=== PATIENT | male | born 1940 | race Caucasian/White ===

== ENCOUNTER 2018-11-14 17:33 | Emergency (ER) | payer MEDICARE ==
[~2018-11-14] VITALS: Ht 180.3 cm; Wt 61.4 kg
[~2018-11-14 17:33] MED LIST: ALEVE220 MG PO; AMOX/K CLAV500 MG PO; FLONASE NASAL50 MCG; LORTAB 5/3255 MG PO; NORCO1 TA1 PO; PENICILLN VK500 MG PO; PERCOCET 5/325M1 TAB PO; VIAGRA50 MG PO
[2018-11-14 19:45] LABS: HEMATOCRIT 25.6 % (39.0-50.0); HEMOGLOBIN 8.4 g/dl (14.0-18.0); MEAN CELL VOLUME 91.1 fL CALC (80.0-100.0); MEAN CORPUSCULAR HGB 29.9 pG CALC (26.0-32.0); MEAN CORPUSCULAR HGB CONC 32.8 g/L CALC (32.0-36.0); PLATELET COUNT 184 thou/uL (130-400); RED BLOOD COUNT 2.81 mill/uL (4.70-6.10); RED CELL DISTRI WIDTH 13.3 % (11.5-15.5)
[2018-11-14 19:46] LABS: MANUAL DIFFERENTIAL YES
[2018-11-14 19:49] LABS: ALBUMIN 3.1 g/dL (3.2-5.0); ALKALINE PHOSPHATASE 70 u/l (38-126); BILIRUBIN, TOTAL 1.1 mg/dL (0.0-1.4); BUN 18 mg/dL (8-23); BUN/CREATININE RATIO 25 (12-20 (CALC)); CARBON DIOXIDE 22 mmol/l (22-30); CHLORIDE 98 mmol/l (95-108); CREATININE 0.7 mg/dL (0.7-1.3); GFR > 60 ML/MIN (>=60 (CALC)); GFR FOR AFR.AMER. > 60 ML/MIN (>=60 (CALC)); POTASSIUM 4.6 mmol/l (3.5-5.1); TOTAL PROTEIN 6.4 g/dL (6.3-8.2)
[2018-11-14 19:59] LABS: ANION GAP 16 (6-22 (CALC)); SGOT/AST 43 u/l (19-48); SODIUM 131 mmol/l (137-146)
[2018-11-14 20:07] LABS: BAND 4 % (0-8)
[2018-11-14 20:12] LABS: URINE BLOOD DIPSTICK NEGATIVE (NEGATIVE); URINE COLOR YELLOW; URINE GLUCOSE - DIPSTICK NEGATIVE (NEGATIVE); URINE KETONE TRACE mg/dL (NEGATIVE); URINE LEUK ESTERASE NEGATIVE (NEGATIVE); URINE NITRITE - DIPSTICK NEGATIVE (Negative); URINE PROTEIN - DIPSTICK TRACE mg/dL (NEG-TRACE); URINE UROBILINOGEN - DIPSTICK >=8.0 E.U./dL (0.2)
--- NOTE | 2018-11-14 20:13 | NUR ---
BREATHINGTREATMENT GIVEN. BREATHING TECH. FOR GOOD DEPOSITION TO THE LUNGS.
[2018-11-14 20:27] LABS: URINE BILIRUBIN - DIPSTICK SMALL (NEGATIVE)
[2018-11-14] MEDS ORDERED: VENTOLIN HFA IN (21:17)
[2018-11-14] MEDS ORDERED: LEVAQUIN750 MG PO (21:17)
[2018-11-14] MEDS ORDERED: PREDNISONE10 MG PO (21:17)
[2018-11-14 21:27] VITALS: BP 108/66
== END 2018-11-14 21:30 | disposition home or self-care (01) ==
LOC: ED 17:33
PROVIDERS: Family Medicine
DX: J18.9 Pneumonia, unspecified organism (principal); C34.90 Malignant neoplasm of unspecified part of unspecified bronchus or lung; R11.10 Vomiting, unspecified; F17.210 Nicotine dependence, cigarettes, uncomplicated; Z79.899 Other long term (current) drug therapy

== ENCOUNTER 2018-11-19 17:10 | Emergency (ER) | payer MEDICARE ==
[~2018-11-19] VITALS: Ht 180.3 cm; Wt 59.0 kg
[~2018-11-19 17:10] MED LIST changes: +LEVAQUIN750 MG PO; +PREDNISONE10 MG PO; +VENTOLIN HFA IN
[2018-11-19 19:39] LABS: ALBUMIN 2.9 g/dL (3.2-5.0); ALKALINE PHOSPHATASE 73 u/l (38-126); BILIRUBIN, TOTAL 0.4 mg/dL (0.0-1.4); BUN 19 mg/dL (8-23); BUN/CREATININE RATIO 33 (12-20 (CALC)); CARBON DIOXIDE 25 mmol/l (22-30); CHLORIDE 103 mmol/l (95-108); CREATININE 0.6 mg/dL (0.7-1.3); GFR > 60 ML/MIN (>=60 (CALC)); GFR FOR AFR.AMER. > 60 ML/MIN (>=60 (CALC)); POTASSIUM 4.4 mmol/l (3.5-5.1); SGOT/AST 15 u/l (19-48)
[2018-11-19 19:41] LABS: HEMATOCRIT 28.6 % (39.0-50.0); HEMOGLOBIN 9.3 g/dl (14.0-18.0); IMMATURE GRANULOCYTES 0.7 % (0.0-5.0); MEAN CELL VOLUME 91.4 fL CALC (80.0-100.0); MEAN CORPUSCULAR HGB 29.7 pG CALC (26.0-32.0); MEAN CORPUSCULAR HGB CONC 32.5 g/L CALC (32.0-36.0); PLATELET COUNT 166 thou/uL (130-400); RED BLOOD COUNT 3.13 mill/uL (4.70-6.10); RED CELL DISTRI WIDTH 13.6 % (11.5-15.5)
[2018-11-19 19:53] LABS: ANION GAP 14 (6-22 (CALC)); SODIUM 138 mmol/l (137-146)
[2018-11-19 19:56] LABS: MANUAL DIFFERENTIAL YES
[2018-11-19 19:58] LABS: BAND 8 % (0-8)
[2018-11-19] MEDS ORDERED: ADVAIR DISK2 IN (20:09)
[2018-11-19 20:11] VITALS: BP 118/74
== END 2018-11-19 20:32 | disposition home or self-care (01) ==
LOC: ED 17:10
PROVIDERS: Emergency Medicine
DX: R53.1 Weakness (principal); C34.90 Malignant neoplasm of unspecified part of unspecified bronchus or lung; F17.200 Nicotine dependence, unspecified, uncomplicated; Z79.899 Other long term (current) drug therapy

== ENCOUNTER 2018-12-05 13:26 | Observation (INO) | payer MEDICARE ==
[2018-12-05] VITALS (8 sets, daily range): BP systolic 96–108; BP diastolic 58–71
[~2018-12-05] VITALS: Ht 180.3 cm; Wt 60.0 kg
[~2018-12-05 13:26] MED LIST changes: +ADVAIR DISK2 IN
[2018-12-05 14:54] LABS: ALBUMIN 2.8 g/dL (3.2-5.0); ALKALINE PHOSPHATASE 109 u/l (38-126); ANION GAP 13 (6-22 (CALC)); BILIRUBIN, TOTAL 0.5 mg/dL (0.0-1.4); BUN 13 mg/dL (8-23); BUN/CREATININE RATIO 27 (12-20 (CALC)); CARBON DIOXIDE 27 mmol/l (22-30); CHLORIDE 98 mmol/l (95-108); CREATININE 0.5 mg/dL (0.7-1.3); GFR > 60 ML/MIN (>=60 (CALC)); GFR FOR AFR.AMER. > 60 ML/MIN (>=60 (CALC)); POTASSIUM 4.1 mmol/l (3.5-5.1); SODIUM 133 mmol/l (137-146); TOTAL PROTEIN 5.8 g/dL (6.3-8.2)
[2018-12-05 14:57] LABS: SGOT/AST 46 u/l (19-48)
[2018-12-05 20:34] LABS: URINE BILIRUBIN - DIPSTICK NEGATIVE (NEGATIVE); URINE BLOOD DIPSTICK NEGATIVE (NEGATIVE); URINE COLOR YELLOW; URINE GLUCOSE - DIPSTICK NEGATIVE (NEGATIVE); URINE KETONE NEGATIVE (NEGATIVE); URINE LEUK ESTERASE NEGATIVE (NEGATIVE); URINE NITRITE - DIPSTICK NEGATIVE (Negative); URINE PROTEIN - DIPSTICK NEGATIVE (NEG-TRACE); URINE SPECIFIC GRAVITY 1.025
[2018-12-06] VITALS (8 sets, daily range): BP systolic 106–139; BP diastolic 66–81
[2018-12-06 05:16] LABS: MEAN CELL VOLUME 89.1 fL CALC (80.0-100.0); MEAN CORPUSCULAR HGB 29.7 pG CALC (26.0-32.0); MEAN CORPUSCULAR HGB CONC 33.3 g/L CALC (32.0-36.0); PLATELET COUNT 131 thou/uL (130-400); RED BLOOD COUNT 3.03 mill/uL (4.70-6.10); RED CELL DISTRI WIDTH 13.9 % (11.5-15.5)
[2018-12-06 05:18] LABS: ALBUMIN 2.6 g/dL (3.2-5.0); ALKALINE PHOSPHATASE 120 u/l (38-126); AMYLASE 36 u/l (30-110); ANION GAP 13 (6-22 (CALC)); BILIRUBIN, TOTAL 0.8 mg/dL (0.0-1.4); BUN 10 mg/dL (8-23); BUN/CREATININE RATIO 21 (12-20 (CALC)); CARBON DIOXIDE 27 mmol/l (22-30); CHLORIDE 98 mmol/l (95-108); CREATININE 0.5 mg/dL (0.7-1.3); GFR > 60 ML/MIN (>=60 (CALC)); GFR FOR AFR.AMER. > 60 ML/MIN (>=60 (CALC)); LIPASE 30 u/l (23-300); MAGNESIUM 1.8 mg/dL (1.6-2.3); POTASSIUM 4.2 mmol/l (3.5-5.1); SGOT/AST 61 u/l (19-48); SODIUM 134 mmol/l (137-146); TOTAL PROTEIN 5.4 g/dL (6.3-8.2)
[2018-12-06 06:05] LABS: MANUAL DIFFERENTIAL YES
[2018-12-06 06:07] LABS: HYPOCHROMIA FEW; MICROCYTOSIS FEW; OVALOCYTES FEW; PLATELET ESTIMATE NORMAL
[2018-12-07 04:15] VITALS: BP 117/73
[2018-12-07 05:15] LABS: ANION GAP 13 (6-22 (CALC)); BUN 8 mg/dL (8-23); BUN/CREATININE RATIO 20 (12-20 (CALC)); CARBON DIOXIDE 26 mmol/l (22-30); CHLORIDE 101 mmol/l (95-108); CREATININE 0.4 mg/dL (0.7-1.3); GFR > 60 ML/MIN (>=60 (CALC)); GFR FOR AFR.AMER. > 60 ML/MIN (>=60 (CALC)); MAGNESIUM 1.8 mg/dL (1.6-2.3); POTASSIUM 4.1 mmol/l (3.5-5.1); SODIUM 136 mmol/l (137-146)
[2018-12-07 05:16] LABS: HEMATOCRIT 28.2 % (39.0-50.0); HEMOGLOBIN 9.4 g/dl (14.0-18.0); MEAN CELL VOLUME 89.2 fL CALC (80.0-100.0); MEAN CORPUSCULAR HGB 29.7 pG CALC (26.0-32.0); MEAN CORPUSCULAR HGB CONC 33.3 g/L CALC (32.0-36.0); PLATELET COUNT 145 thou/uL (130-400); RED BLOOD COUNT 3.16 mill/uL (4.70-6.10); RED CELL DISTRI WIDTH 13.8 % (11.5-15.5)
[2018-12-07 05:48] LABS: BAND 3 % (0-8); HYPOCHROMIA FEW; MANUAL DIFFERENTIAL YES; MICROCYTOSIS FEW; TOXIC GRANULATION RARE
[2018-12-07 08:27] VITALS: BP 94/63
[2018-12-07 09:43] VITALS: BP 108/67
[2018-12-07 12:37] VITALS: BP 108/69
[2018-12-07 16:15] VITALS: BP 123/73
[2018-12-07 19:00] VITALS: BP 114/68
[2018-12-08 00:06] VITALS: BP 120/67
[2018-12-08 04:27] VITALS: BP 120/75
[2018-12-08 08:32] VITALS: BP 110/67
[2018-12-08 17:09] VITALS: BP 121/72
== END 2018-12-08 16:18 | disposition home or self-care (01) ==
LOC: ED 13:26 → ED-I 14:56 → ED 15:52 → MS2 15:53
PROVIDERS: Nurse Practitioner Family; ADMIT Internal Medicine Nephrology; ATTEND Internal Medicine Nephrology
PROC: 30233N1 Transfusion of Nonautologous Red Blood Cells into Peripheral Vein, Percutaneous Approach (ICD-10-PCS; principal; 2018-12-05)
PROC: 30233N1 Transfusion of Nonautologous Red Blood Cells into Peripheral Vein, Percutaneous Approach (ICD-10-PCS; 2018-12-05)
DX: D70.9 Neutropenia, unspecified (principal); R50.81 Fever presenting with conditions classified elsewhere; D61.810 Antineoplastic chemotherapy induced pancytopenia; T45.1X5A Adverse effect of antineoplastic and immunosuppressive drugs, initial encounter; C34.92 Malignant neoplasm of unspecified part of left bronchus or lung; I95.9 Hypotension, unspecified; J43.9 Emphysema, unspecified; G89.3 Neoplasm related pain (acute) (chronic); E86.0 Dehydration; E87.1 Hypo-osmolality and hyponatremia; K59.00 Constipation, unspecified; F41.1 Generalized anxiety disorder; G47.00 Insomnia, unspecified; R63.6 Underweight; Z87.891 Personal history of nicotine dependence; Z68.1 Body mass index [BMI] 19.9 or less, adult; Z92.3 Personal history of irradiation; C34.02 Malignant neoplasm of left main bronchus; Z95.828 Presence of other vascular implants and grafts
CPT/HCPCS: J0692; J1447; J3370; P9016

== ENCOUNTER 2018-12-14 18:28 | Emergency (ER) | payer MEDICARE ==
[~2018-12-14] VITALS: Ht 180.3 cm; Wt 58.0 kg
[2018-12-14 20:30] LABS: HEMATOCRIT 30.2 % (39.0-50.0); HEMOGLOBIN 9.7 g/dl (14.0-18.0); IMMATURE GRANULOCYTES 4.5 % (0.0-5.0); MEAN CELL VOLUME 90.1 fL CALC (80.0-100.0); MEAN CORPUSCULAR HGB CONC 32.1 g/L CALC (32.0-36.0); RED BLOOD COUNT 3.35 mill/uL (4.70-6.10); RED CELL DISTRI WIDTH 14.2 % (11.5-15.5)
[2018-12-14 20:34] LABS: ANION GAP 14 (6-22 (CALC)); BUN 13 mg/dL (8-23); BUN/CREATININE RATIO 24 (12-20 (CALC)); CARBON DIOXIDE 27 mmol/l (22-30); CHLORIDE 97 mmol/l (95-108); CREATININE 0.5 mg/dL (0.7-1.3); GFR > 60 ML/MIN (>=60 (CALC)); GFR FOR AFR.AMER. > 60 ML/MIN (>=60 (CALC)); POTASSIUM 4.6 mmol/l (3.5-5.1); SODIUM 134 mmol/l (137-146)
[2018-12-14 20:36] LABS: PLATELET COUNT 303 thou/uL (130-400)
[2018-12-14 20:55] LABS: MANUAL DIFFERENTIAL YES
[2018-12-14 21:08] LABS: BAND 21 % (0-8)
[2018-12-14 21:09] LABS: HYPOCHROMIA FEW
[2018-12-14 21:50] VITALS: BP 116/68
== END 2018-12-14 21:50 | disposition home or self-care (01) ==
LOC: ED 18:28
PROVIDERS: Family Medicine
DX: E86.0 Dehydration (principal)

== ENCOUNTER 2018-12-26 09:37 | Day surgery (SDC) | payer MEDICARE ==
[2018-12-26] MEDS ORDERED: MIRTAZAPINE ODT15 MG PO (10:12)
[2018-12-26] MEDS ORDERED: CLONAZEP ODT0.5 MG PO (10:13)
[2018-12-26] MEDS ORDERED: CIPRO XR500 M2 PO (10:13)
[2018-12-26] MEDS ORDERED: OXYCONTIN10 MG PO (10:14)
[2018-12-26] MEDS ORDERED: TRELEGY ELLIPTA1 AER PO (10:14)
[2018-12-26] MEDS ORDERED: PROTONIX40 M2 PO (10:15)
[2018-12-26] MEDS ORDERED: MONTELUKAST SODI4 MG PO (10:15)
[2018-12-26 12:07] VITALS: BP 120/78
== END 2018-12-26 13:00 | disposition home or self-care (01) ==
LOC: ORM 09:37
PROVIDERS: ATTEND Surgery
PROC: 0DH63UZ Insertion of Feeding Device into Stomach, Percutaneous Approach (ICD-10-PCS; principal; 2018-12-26)
DX: E46 Unspecified protein-calorie malnutrition (principal); C34.90 Malignant neoplasm of unspecified part of unspecified bronchus or lung

== ENCOUNTER 2019-01-08 17:50 | Emergency (ER) | payer MEDICARE ==
[~2019-01-08] VITALS: Ht 157.5 cm; Wt 60.0 kg
[~2019-01-08 17:50] MED LIST changes: +CIPRO XR500 M2 PO; +CLONAZEP ODT0.5 MG PO; +MIRTAZAPINE ODT15 MG PO; +MONTELUKAST SODI4 MG PO; +OXYCONTIN10 MG PO; +PROTONIX40 M2 PO; +TRELEGY ELLIPTA1 AER PO
[2019-01-08] MEDS ORDERED: TRAMADOL HCL50 MG PO (19:19)
[2019-01-08 19:38] VITALS: BP 115/74
== END 2019-01-08 19:38 | disposition home or self-care (01) ==
LOC: ED 17:50
DX: R10.12 Left upper quadrant pain (principal); F17.200 Nicotine dependence, unspecified, uncomplicated; C34.90 Malignant neoplasm of unspecified part of unspecified bronchus or lung; C79.9 Secondary malignant neoplasm of unspecified site; C44.90 Unspecified malignant neoplasm of skin, unspecified; Z93.1 Gastrostomy status

== ENCOUNTER 2019-02-02 20:59 | Emergency (ER) | payer MEDICARE ==
[~2019-02-02] VITALS: Ht 180.3 cm; Wt 58.1 kg
[~2019-02-02 20:59] MED LIST changes: +TRAMADOL HCL50 MG PO
[2019-02-02] MEDS ORDERED: COLACE100 MG PO (21:34)
[2019-02-02 21:50] VITALS: BP 110/72
== END 2019-02-02 21:50 | disposition home or self-care (01) ==
LOC: ED 20:59
DX: K59.00 Constipation, unspecified (principal); F17.210 Nicotine dependence, cigarettes, uncomplicated

== ENCOUNTER 2019-05-15 14:26 | Emergency (ER) | payer MEDICARE ==
[~2019-05-15] VITALS: Ht 180.3 cm; Wt 54.5 kg
[~2019-05-15 14:26] MED LIST changes: +COLACE100 MG PO; +CYANOCOBAL1000 MCG/M IM; +LOVENOX40 MG/0.4 SC; +Levaquin PO; +MIRALAX3350 NF PO; +OXYCODONE10 M1 PO; +POTASSIUM PEG; +REMERON15 MG PO; +VENTOLIN H108 MCG/AC IN
[2019-05-15 16:12] VITALS: BP 98/60
== END 2019-05-15 16:12 | disposition home or self-care (01) ==
LOC: ED 14:26
DX: M54.6 Pain in thoracic spine (principal); Z85.118 Personal history of other malignant neoplasm of bronchus and lung; Z93.1 Gastrostomy status

== ENCOUNTER 2019-07-04 10:36 | Inpatient (IN) | payer MEDICARE ==
[~2019-07-04] VITALS: Ht 180.3 cm; Wt 48.0 kg
[2019-07-04 11:02] LABS: HEMATOCRIT 31.8 % (39.0-50.0); HEMOGLOBIN 9.6 g/dl (14.0-18.0); IMMATURE GRANULOCYTES 0.4 % (0.0-5.0); MEAN CELL VOLUME 96.7 fL CALC (80.0-100.0); MEAN CORPUSCULAR HGB 29.2 pG CALC (26.0-32.0); MEAN CORPUSCULAR HGB CONC 30.2 g/L CALC (32.0-36.0); NEUT# 13.28 thou/uL (1.82-7.42); RED BLOOD COUNT 3.29 mill/uL (4.70-6.10); RED CELL DISTRI WIDTH 16.4 % (11.5-15.5)
[2019-07-04 11:10] LABS: ALBUMIN 3.4 g/dL (3.2-5.0); ALKALINE PHOSPHATASE 121 u/l (38-126); BUN 21 mg/dL (8-23); BUN/CREATININE RATIO 42 (12-20 (CALC)); CARBON DIOXIDE 26 mmol/l (22-30); CHLORIDE 97 mmol/l (95-108); CREATININE 0.5 mg/dL (0.7-1.3); GFR > 60 ML/MIN (>=60 (CALC)); GFR FOR AFR.AMER. > 60 ML/MIN (>=60 (CALC)); SGOT/AST 33 u/l (19-48); SODIUM 135 mmol/l (137-146); TOTAL PROTEIN 8.5 g/dL (6.3-8.2)
[2019-07-04 11:12] LABS: ANION GAP 16 (6-22 (CALC)); BILIRUBIN, TOTAL 0.6 mg/dL (0.0-1.4); POTASSIUM 3.8 mmol/l (3.5-5.1)
[2019-07-04 11:21] LABS: MYOGLOBIN 35 ng/mL (0 - 121)
[2019-07-04] MEDS ORDERED: GABAPENTIN100 MG PO (17:17)
[2019-07-04] MEDS ORDERED: CLONAZEPAM1 MG PO (17:18)
[2019-07-04 20:00] VITALS: BP 128/71
[2019-07-04 21:00] VITALS: BP 114/62
[2019-07-04 22:00] VITALS: BP 112/70
[2019-07-04 22:42] LABS: URINE BILIRUBIN - DIPSTICK NEGATIVE (NEGATIVE); URINE BLOOD DIPSTICK MODERATE (NEGATIVE); URINE COLOR YELLOW; URINE GLUCOSE - DIPSTICK NEGATIVE (NEGATIVE); URINE KETONE NEGATIVE (NEGATIVE); URINE LEUK ESTERASE NEGATIVE (NEGATIVE); URINE NITRITE - DIPSTICK NEGATIVE (Negative); URINE PROTEIN - DIPSTICK NEGATIVE (NEG-TRACE); URINE SPECIFIC GRAVITY 1.015; URINE UROBILINOGEN - DIPSTICK >=8.0 E.U./dL (0.2)
[2019-07-04 23:00] VITALS: BP 89/55
[2019-07-04 23:09] LABS: URINE SQUAMOUS EPITHELIAL CELL FEW EPI/hpf (0-FEW)
[2019-07-05] VITALS (27 sets, daily range): BP systolic 81–133; BP diastolic 53–75
[2019-07-05 05:47] LABS: HEMOGLOBIN 7.8 g/dl (14.0-18.0); IMMATURE GRANULOCYTES 0.4 % (0.0-5.0); MEAN CELL VOLUME 95.1 fL CALC (80.0-100.0); MEAN CORPUSCULAR HGB 29.3 pG CALC (26.0-32.0); MEAN CORPUSCULAR HGB CONC 30.8 g/L CALC (32.0-36.0); NEUT# 10.89 thou/uL (1.82-7.42); RED BLOOD COUNT 2.66 mill/uL (4.70-6.10); RED CELL DISTRI WIDTH 16.4 % (11.5-15.5)
[2019-07-05 06:01] LABS: HEMATOCRIT 25.3 % (39.0-50.0)
[2019-07-05 06:12] LABS: ANION GAP 11 (6-22 (CALC)); BUN 14 mg/dL (8-23); BUN/CREATININE RATIO 51 (12-20 (CALC)); CARBON DIOXIDE 24 mmol/l (22-30); CHLORIDE 105 mmol/l (95-108); CREATININE 0.3 mg/dL (0.7-1.3); GFR > 60 ML/MIN (>=60 (CALC)); GFR FOR AFR.AMER. > 60 ML/MIN (>=60 (CALC)); MAGNESIUM 2.2 mg/dL (1.6-2.3); POTASSIUM 3.8 mmol/l (3.5-5.1); SODIUM 136 mmol/l (137-146)
[2019-07-06] VITALS (21 sets, daily range): BP systolic 89–129; BP diastolic 55–74
[2019-07-06 05:40] LABS: HEMATOCRIT 22.9 % (39.0-50.0); HEMOGLOBIN 7.1 g/dl (14.0-18.0); IMMATURE GRANULOCYTES 0.4 % (0.0-5.0); MEAN CELL VOLUME 97.4 fL CALC (80.0-100.0); MEAN CORPUSCULAR HGB 30.2 pG CALC (26.0-32.0); NEUT# 6.5 thou/uL (1.82-7.42); RED BLOOD COUNT 2.35 mill/uL (4.70-6.10); RED CELL DISTRI WIDTH 16.7 % (11.5-15.5)
[2019-07-06 05:43] LABS: ALKALINE PHOSPHATASE 92 u/l (38-126); ANION GAP 8 (6-22 (CALC)); BILIRUBIN, TOTAL 0.4 mg/dL (0.0-1.4); BUN 16 mg/dL (8-23); BUN/CREATININE RATIO 48 (12-20 (CALC)); CARBON DIOXIDE 26 mmol/l (22-30); CHLORIDE 108 mmol/l (95-108); CREATININE 0.3 mg/dL (0.7-1.3); GFR > 60 ML/MIN (>=60 (CALC)); GFR FOR AFR.AMER. > 60 ML/MIN (>=60 (CALC)); POTASSIUM 4.3 mmol/l (3.5-5.1); SGOT/AST 38 u/l (19-48); SODIUM 137 mmol/l (137-146)
[2019-07-06 05:49] LABS: ALBUMIN 2.3 g/dL (3.2-5.0); TOTAL PROTEIN 6.2 g/dL (6.3-8.2)
[2019-07-06] MEDS ORDERED: AMOX/K CLA250 MG/5 M PEG (18:17)
[2019-07-06] MEDS ORDERED: PREDNISOLO15 MG/5 M1 PO (18:17)
[2019-08-11] MEDS ORDERED: TORADOL PO (12:05)
== END 2019-07-06 18:35 | disposition home health service (06) | DRG 193 ==
LOC: ED 10:36 → ED-I 13:30 → ED 14:01 → ED-I 14:02 → ICU 14:02 → ED-I 16:15 → ICU 16:15
PROVIDERS: Emergency Medicine; Nurse Practitioner Family; ADMIT Internal Medicine; ATTEND Internal Medicine
PROC: 30233N1 Transfusion of Nonautologous Red Blood Cells into Peripheral Vein, Percutaneous Approach (ICD-10-PCS; principal; 2019-07-06)
DX: J18.9 Pneumonia, unspecified organism (principal); E43 Unspecified severe protein-calorie malnutrition; C34.90 Malignant neoplasm of unspecified part of unspecified bronchus or lung; C79.51 Secondary malignant neoplasm of bone; C78.89 Secondary malignant neoplasm of other digestive organs; Z68.1 Body mass index [BMI] 19.9 or less, adult; R09.02 Hypoxemia; D64.9 Anemia, unspecified; R13.10 Dysphagia, unspecified; E86.0 Dehydration; I95.9 Hypotension, unspecified; R62.7 Adult failure to thrive; Z93.1 Gastrostomy status; Z79.83 Long term (current) use of bisphosphonates; Z87.891 Personal history of nicotine dependence
CPT/HCPCS: J0131; J1650; P9016

== ENCOUNTER 2019-08-08 10:17 | Emergency (ER) | payer MEDICARE ==
[~2019-08-08] VITALS: Ht 180.3 cm; Wt 45.0 kg
[~2019-08-08 10:17] MED LIST changes: +AMOX/K CLA250 MG/5 M PEG; +CLONAZEPAM1 MG PO; +GABAPENTIN100 MG PO; +PREDNISOLO15 MG/5 M1 PO
[2019-08-08 12:54] LABS: IMMATURE GRANULOCYTES 0.6 % (0.0-5.0); MEAN CELL VOLUME 97.6 fL CALC (80.0-100.0); MEAN CORPUSCULAR HGB 30.5 pG CALC (26.0-32.0); MEAN CORPUSCULAR HGB CONC 31.3 g/L CALC (32.0-36.0); NEUT# 8.87 thou/uL (1.82-7.42); RED BLOOD COUNT 3.31 mill/uL (4.70-6.10); RED CELL DISTRI WIDTH 17.5 % (11.5-15.5)
[2019-08-08 13:00] LABS: HEMATOCRIT 32.3 % (39.0-50.0); HEMOGLOBIN 10.1 g/dl (14.0-18.0)
[2019-08-08 13:09] LABS: ALKALINE PHOSPHATASE 102 u/l (38-126); ANION GAP 13 (6-22 (CALC)); BILIRUBIN, TOTAL 0.5 mg/dL (0.0-1.4); BUN 23 mg/dL (8-23); BUN/CREATININE RATIO 68 (12-20 (CALC)); CARBON DIOXIDE 28 mmol/l (22-30); CHLORIDE 98 mmol/l (95-108); CREATININE 0.3 mg/dL (0.7-1.3); GFR > 60 ML/MIN (>=60 (CALC)); GFR FOR AFR.AMER. > 60 ML/MIN (>=60 (CALC)); POTASSIUM 4.7 mmol/l (3.5-5.1); SGOT/AST 52 u/l (19-48); SODIUM 134 mmol/l (137-146)
[2019-08-08 13:12] LABS: ALBUMIN 3.1 g/dL (3.2-5.0); TOTAL PROTEIN 7.5 g/dL (6.3-8.2)
[2019-08-08 13:34] VITALS: BP 90/64
[2019-08-11] MEDS ORDERED: TORADOL PO (12:05)
== END 2019-08-08 13:37 | disposition home or self-care (01) ==
LOC: ED 10:17
PROVIDERS: Family Medicine
DX: M25.551 Pain in right hip (principal); I95.9 Hypotension, unspecified

== ENCOUNTER 2019-08-10 08:40 | Emergency (ER) | payer MEDICARE ==
[~2019-08-10] VITALS: Ht 180.3 cm; Wt 50.0 kg
[2019-08-10 10:24] VITALS: BP 100/63
[2019-08-11] MEDS ORDERED: TORADOL PO (12:05)
== END 2019-08-10 10:30 | disposition home or self-care (01) ==
LOC: ED 08:40
DX: M25.551 Pain in right hip (principal)

== ENCOUNTER 2019-08-19 | Emergency (ER) | payer MEDICARE ==
[~2019-08-19] MED LIST changes: +TORADOL PO
[2019-08-19] MEDS ORDERED: TORADOL PO ×2 (09:58→10:36)
[2019-08-19] MEDS ORDERED: FLEXERIL PO ×2 (09:58→10:36)
== END 2019-08-19 10:38 | disposition home or self-care (01) ==
DX: G89.3 Neoplasm related pain (acute) (chronic) (principal); C34.90 Malignant neoplasm of unspecified part of unspecified bronchus or lung; C79.9 Secondary malignant neoplasm of unspecified site